=== PATIENT | female | born 1980 | race African-American/Black ===

== ENCOUNTER 2017-02-14 16:04 | Inpatient (IN) | payer OTHER ==
[~2017-02-14] VITALS: Ht 167.6 cm; Wt 95.1 kg
[2017-02-14 16:52] LABS: EOSINOPHILS % (AUTO) 0.1 % (1.0-6.0); HEMATOCRIT 40.5 % (36-46); HEMOGLOBIN 12.6 g/dL (12.0-16.0); LYMPHOCYTES # (AUTO) 1.6 K/uL (1.0-4.8); LYMPHOCYTES % (AUTO) 7.8 % (22.0-44.0); MEAN CORPUSCULAR HEMOGLOBIN 21.9 pg (26.0-34.0); MEAN CORPUSCULAR HGB CONC 31.1 G/dL (31.0-37.0); MEAN CORPUSCULAR VOLUME 71 fL (80-100); MONOCYTES % (AUTO) 4.6 % (2.0-9.0); NEUTROPHILS # (AUTO) 18.2 K/uL (1.8-7.7); PLATELET COUNT (AUTO) 322 K/uL (150-450); RED BLOOD CELL COUNT(AUTO) 5.74 MIL/uL (4.00-5.20); RED CELL DISTRIBUTION WIDTH 16.6 % (11.5-14.5); WHITE BLOOD COUNT (AUTO) 20.8 K/uL (4.5-11.0)
[2017-02-14 16:54] LABS: NEUTROPHILS % (AUTO) 87.5 % (40.0-70.0)
[2017-02-14 16:55] LABS: ANION GAP 13 mmol/L (8-16); CALCIUM, TOTAL 9.5 mg/dL (8.8-10.5); CARBON DIOXIDE 24 mmol/L (22-29); CHLORIDE 103 mmol/L (98-107); CREATININE 1.04 mg/dL (0.60-1.30); GLOMERULAR FILTR. RATE CALC > 60 mL/min (>60); POTASSIUM 3.5 mmol/L (3.5-5.1); SODIUM SERUM 140 mmol/L (136-145); UREA NITROGEN, BLOOD 7 mg/dL (7-18)
[2017-02-14 17:01] LABS: ALANINE AMINOTRANSFERASE 16 U/L (12-78); ALBUMIN 3.8 g/dL (3.4-5.0); ASPARTATE AMINOTRANSFERASE 14 U/L (15-37); BILIRUBIN,TOTAL 0.4 mg/dL (0.1-1.0); RBC MORPHOLOGY COMMENT ABNORMAL RBC MORPH; TOTAL PROTEIN, SERUM 8.4 g/dL (6.4-8.2)
[2017-02-14] MEDS ORDERED: ONDANSETRON HCL 4 MG/2 ML VIAL IVP ONE (18:15)
[2017-02-14] MEDS ORDERED: SODIUM CHLORIDE 0.9% 2,000 ML IV ONE (18:15)
[2017-02-14] MEDS ORDERED: BARIUM SULFATE 0.1% SUSPENSION 450 ML BOTTLE PO ONE (18:15)
[2017-02-14] MEDS ORDERED: HYDROmorphone 2 MG/ML SYRINGE IVP ONE ×2 (18:15→20:45)
[2017-02-14] MEDS ORDERED: SODIUM CHLORIDE 0.9% 100 ML ONE (18:19)
[2017-02-14] MEDS ORDERED: IOVERSOL 350 MG/ML 150 ML VIAL ONE (18:19)
[2017-02-14 18:28] LABS: APPEARANCE,URINE CLOUDY (CLEAR); GLUCOSE, URINE (UA) NEGATIVE (NEGATIVE); KETONES,URINE NEGATIVE (NEGATIVE); LEUKOCYTE ESTERASE ,URINE NEGATIVE (NEGATIVE); PH,URINE 5.5 (5.0-8.0); PROTEIN,URINE TRACE (NEGATIVE)
[2017-02-14 18:40] LABS: ADD UA MICROSCOPIC YES; OCCULT BLOOD,URINE MODERATE (NEGATIVE)
[2017-02-14 18:41] LABS: SQUAMOUS EPITHELIAL CELL,UR Moderate /LPF (None Seen)
[2017-02-14] MEDS ORDERED: POTASSIUM CHL 20 MEQ/D5-0.45NS 1,000 ML IV ONE (22:00)
[2017-02-15 00:13] VITALS: BP 146/76
[2017-02-15] MEDS ORDERED: 0.9% SODIUM CHLORIDE 10 ML SYRINGE IVP PRN (02:00)
[2017-02-15] MEDS ORDERED: OxyCODONE HCL/ACETAMINOPHEN 5-325 MG TABLET PO PRN (02:00)
[2017-02-15] MEDS ORDERED: ONDANSETRON HCL 4 MG/2 ML VIAL IVP PRN (02:00)
[2017-02-15] MEDS: CIPROFLOXACIN 200 MG/D5% WATER 100 ML IV SCH ×2 (03:09→16:18)
[2017-02-15] MEDS: OxyCODONE HCL/ACETAMINOPHEN 5-325 MG TABLET PO PRN ×4 (03:13→20:37)
[2017-02-15] MEDS: DOCUSATE SODIUM 100 MG CAPSULE PO SCH ×3 (03:13→20:37)
[2017-02-15 04:52] VITALS: BP 100/63
[2017-02-15 07:10] VITALS: BP 105/64
[2017-02-15] MEDS ORDERED: PANTOPRAZOLE SODIUM 40 MG/VIAL IVP SCH (09:00)
[2017-02-15] MEDS: SODIUM CHLORIDE 0.9% 1,000 ML IV SCH ×3 (10:36→23:49)
[2017-02-15] MEDS ORDERED: BISACODYL 10 MG RECTAL RECTAL SUPPOSITORY PR PRN (14:45)
[2017-02-15] MEDS ORDERED: ALBUTEROL SULFATE 2.5 MG/0.5 ML NEB SOLUTION NEB PRN (14:45)
[2017-02-15] MEDS ORDERED: ZOLPIDEM TARTRATE 5 MG TABLET PO PRN (14:45)
[2017-02-15] MEDS ORDERED: MORPHINE SULFATE 2 MG/ML SYRINGE IVP PRN (14:45)
[2017-02-15] MEDS ORDERED: ACETAMINOPHEN 325 MG TABLET PO PRN (14:45)
[2017-02-15] MEDS ORDERED: MAGNESIUM HYDROXIDE SUSPENSION 30 ML UDCUP PO PRN (14:45)
[2017-02-15] MEDS ORDERED: IPRATROPIUM BROMIDE 0.5 MG/2.5 ML NEB SOLUTION NEB PRN (14:45)
[2017-02-15 14:57] LABS: BASOPHILS % (AUTO) 0.1 % (0.0-2.0); EOSINOPHILS % (AUTO) 0.5 % (1.0-6.0); HEMATOCRIT 34.5 % (36-46); HEMOGLOBIN 10.6 g/dL (12.0-16.0); LYMPHOCYTES # (AUTO) 2.2 K/uL (1.0-4.8); LYMPHOCYTES % (AUTO) 13.9 % (22.0-44.0); MEAN CORPUSCULAR HEMOGLOBIN 22.1 pg (26.0-34.0); MEAN CORPUSCULAR HGB CONC 30.8 G/dL (31.0-37.0); MEAN CORPUSCULAR VOLUME 72 fL (80-100); MONOCYTES # (AUTO) 1.2 K/uL (0.1-1.0); MONOCYTES % (AUTO) 7.4 % (2.0-9.0); NEUTROPHILS # (AUTO) 12.3 K/uL (1.8-7.7); NEUTROPHILS % (AUTO) 78.1 % (40.0-70.0); PLATELET COUNT (AUTO) 257 K/uL (150-450); RED BLOOD CELL COUNT(AUTO) 4.81 MIL/uL (4.00-5.20); RED CELL DISTRIBUTION WIDTH 17.5 % (11.5-14.5); WHITE BLOOD COUNT (AUTO) 15.7 K/uL (4.5-11.0)
[2017-02-15 15:10] VITALS: BP 109/69
[2017-02-15 15:19] LABS: ANION GAP 8 mmol/L (8-16); CALCIUM, TOTAL 8.3 mg/dL (8.8-10.5); CARBON DIOXIDE 27 mmol/L (22-29); CHLORIDE 107 mmol/L (98-107); GLOMERULAR FILTR. RATE CALC > 60 mL/min (>60); POTASSIUM 3.9 mmol/L (3.5-5.1); SODIUM SERUM 142 mmol/L (136-145); UREA NITROGEN, BLOOD 7 mg/dL (7-18)
[2017-02-15 15:24] LABS: ALANINE AMINOTRANSFERASE 18 U/L (12-78); ALBUMIN 2.8 g/dL (3.4-5.0); ASPARTATE AMINOTRANSFERASE 15 U/L (15-37); BILIRUBIN,TOTAL 0.2 mg/dL (0.1-1.0); TOTAL PROTEIN, SERUM 6.9 g/dL (6.4-8.2)
[2017-02-15 15:41] LABS: RBC MORPHOLOGY COMMENT ABNORMAL RBC MORPH
[2017-02-15] MEDS: HEPARIN SODIUM,PORCINE 5,000 UNITS/ML VIAL SQ SCH ×2 (16:18→23:49)
[2017-02-15] MEDS: ONDANSETRON HCL 4 MG/2 ML VIAL IVP PRN (16:21)
[2017-02-15] MEDS: MetroNIDAZOLE 500 MG/NACL 100 ML IV SCH ×2 (17:25→23:49)
[2017-02-15 19:41] VITALS: BP 126/73
[2017-02-15 23:31] VITALS: BP 109/65
[2017-02-16] MEDS: CIPROFLOXACIN 200 MG/D5% WATER 100 ML IV SCH (01:54)
[2017-02-16] MEDS: OxyCODONE HCL/ACETAMINOPHEN 5-325 MG TABLET PO PRN ×2 (04:22→11:56)
[2017-02-16] MEDS: ONDANSETRON HCL 4 MG/2 ML VIAL IVP PRN (04:24)
[2017-02-16 05:28] VITALS: BP 100/56
[2017-02-16 06:22] LABS: BASOPHILS % (AUTO) 0.3 % (0.0-2.0); HEMATOCRIT 32.3 % (36-46); LYMPHOCYTES # (AUTO) 2.6 K/uL (1.0-4.8); LYMPHOCYTES % (AUTO) 25.4 % (22.0-44.0); MEAN CORPUSCULAR HEMOGLOBIN 22.3 pg (26.0-34.0); MEAN CORPUSCULAR HGB CONC 30.9 G/dL (31.0-37.0); MEAN CORPUSCULAR VOLUME 72 fL (80-100); MONOCYTES # (AUTO) 0.8 K/uL (0.1-1.0); NEUTROPHILS # (AUTO) 6.8 K/uL (1.8-7.7); NEUTROPHILS % (AUTO) 65.3 % (40.0-70.0); PLATELET COUNT (AUTO) 272 K/uL (150-450); RED BLOOD CELL COUNT(AUTO) 4.48 MIL/uL (4.00-5.20); RED CELL DISTRIBUTION WIDTH 17.4 % (11.5-14.5); WHITE BLOOD COUNT (AUTO) 10.3 K/uL (4.5-11.0)
[2017-02-16 07:10] VITALS: BP 99/49
[2017-02-16] MEDS: MetroNIDAZOLE 500 MG/NACL 100 ML IV SCH (07:48)
[2017-02-16] MEDS: DOCUSATE SODIUM 100 MG CAPSULE PO SCH (07:49)
[2017-02-16] MEDS: HEPARIN SODIUM,PORCINE 5,000 UNITS/ML VIAL SQ SCH (07:49)
[2017-02-16 07:58] LABS: ALANINE AMINOTRANSFERASE 15 U/L (12-78); ALBUMIN 2.7 g/dL (3.4-5.0); ANION GAP 6 mmol/L (8-16); ASPARTATE AMINOTRANSFERASE 9 U/L (15-37); BILIRUBIN,TOTAL 0.1 mg/dL (0.1-1.0); CALCIUM, TOTAL 7.9 mg/dL (8.8-10.5); CARBON DIOXIDE 27 mmol/L (22-29); CHLORIDE 108 mmol/L (98-107); CREATININE 0.84 mg/dL (0.60-1.30); GLOMERULAR FILTR. RATE CALC > 60 mL/min (>60); POTASSIUM 3.8 mmol/L (3.5-5.1); SODIUM SERUM 141 mmol/L (136-145); TOTAL PROTEIN, SERUM 6.3 g/dL (6.4-8.2); UREA NITROGEN, BLOOD 9 mg/dL (7-18)
[2017-02-16] MEDS ORDERED: PANTOPRAZOLE SODIUM 40 MG/VIAL IVP SCH (09:00)
[2017-02-16 10:52] LABS: RBC MORPHOLOGY COMMENT ABNORMAL RBC MORPH
[2017-02-16 11:08] VITALS: BP 110/69
[2017-02-16] MEDS ORDERED: METR500 PO (13:42)
[2017-02-16] MEDS ORDERED: CIPR-278 PO (13:42)
== END 2017-02-16 16:10 | disposition home or self-care (01) | DRG 720 ==
LOC: EMS 16:06 → 6N 23:08
PROVIDERS: ADMIT Internal Medicine; ATTEND Internal Medicine
DX: A41.9 Sepsis, unspecified organism (principal); K52.9 Noninfective gastroenteritis and colitis, unspecified; Z79.899 Other long term (current) drug therapy
CPT/HCPCS: 70450; 74177; 96361; 96365; 96366; 96375; 96376; 99285; C9113; J0744; J1170; J1644; J2405; J3480; J3490; J7030; J7050

== ENCOUNTER 2024-12-09 14:30 | Emergency (ER) | payer OTHER ==
[~2024-12-09] VITALS: Ht 162.6 cm; Wt 86.4 kg
[~2024-12-09 14:30] MED LIST: CIPR-278 PO; METR500 PO
[2024-12-09 14:32] VITALS: BP 136/75; PULSE 72; RESP 16; TEMP 98.9; O2SAT 100
[2024-12-09 14:52] LABS: APPEARANCE,URINE CLEAR (CLEAR); BILIRUBIN,URINE NEGATIVE (NEGATIVE); COLOR,URINE LIGHT YELLOW (YELLOW); GLUCOSE, URINE (UA) NEGATIVE (NEGATIVE); KETONES,URINE NEGATIVE (NEGATIVE); LEUKOCYTE ESTERASE ,URINE NEGATIVE (NEGATIVE); NITRATE,URINE NEGATIVE (NEGATIVE); OCCULT BLOOD,URINE LARGE (NEGATIVE); PH,URINE 5.5 (5.0-8.0); PROTEIN,URINE TRACE mg/dL (NEGATIVE); UROBILINOGEN,URINE <=1.0 mg/dL (<=1.0)
[2024-12-09 15:19] LABS: BACTERIA,URINE None Seen /HPF (None Seen); SQUAMOUS EPITHELIAL CELL,UR Few /LPF (None Seen); WBC,URINE None Seen /HPF (0-5)
[2024-12-09 15:19] LABS: BASOPHILS % (AUTO) 0.3 % (0.0-2.0); EOSINOPHILS % (AUTO) 0.5 % (1.0-6.0); HEMATOCRIT 36.8 % (36-46); HEMOGLOBIN 11.4 g/dL (12.0-16.0); LYMPHOCYTES # (AUTO) 2.7 K/uL (1.0-4.8); LYMPHOCYTES % (AUTO) 23.6 % (22.0-44.0); MEAN CORPUSCULAR HGB CONC 30.9 G/dL (31.0-37.0); MEAN CORPUSCULAR VOLUME 71 fL (80-100); MONOCYTES # (AUTO) 0.7 K/uL (0.1-1.0); NEUTROPHILS # (AUTO) 7.9 K/uL (1.8-7.7); NEUTROPHILS % (AUTO) 69.6 % (40.0-70.0); PLATELET COUNT (AUTO) 389 K/uL (150-450); RED BLOOD CELL COUNT(AUTO) 5.17 MIL/uL (4.00-5.20); RED CELL DISTRIBUTION WIDTH 16.3 % (11.5-14.5); WHITE BLOOD COUNT (AUTO) 11.3 K/uL (4.5-11.0)
[2024-12-09 15:27] LABS: ANION GAP 10 mmol/L (8-16); CARBON DIOXIDE 28 mmol/L (22-29); CHLORIDE 103 mmol/L (98-107); CREATININE 0.94 mg/dL (0.60-1.30); GLOMERULAR FILTR. RATE CALC > 60 mL/min (>60); GLUCOSE,RANDOM 79 mg/dL (70-110); POTASSIUM 4.1 mmol/L (3.5-5.1); SODIUM SERUM 141 mmol/L (136-145); UREA NITROGEN, BLOOD 11 mg/dL (7-18)
[2024-12-09 15:31] LABS: ALANINE AMINOTRANSFERASE 20 U/L (12-78); ALBUMIN 3.5 g/dL (3.4-5.0); ALKALINE PHOSPHATASE 60 U/L (46-116); ASPARTATE AMINOTRANSFERASE 16 U/L (15-37); BILIRUBIN,TOTAL 0.2 mg/dL (0.1-1.0); LIPASE 39 U/L (16-77); TOTAL PROTEIN, SERUM 7.6 g/dL (6.4-8.2)
[2024-12-09 16:35] LABS: RBC MORPHOLOGY COMMENT ABNORMAL RBC MORPH
[2024-12-09] MEDS ORDERED: IOHEXOL 350 MG/ML 100 ML VIAL ONE (16:46)
[2024-12-09] MEDS ORDERED: 0.9% SODIUM CHLORIDE 10 ML SYRINGE IVP ONE (16:46)
[2024-12-09] MEDS ORDERED: SODIUM CHLORIDE 0.9% 100 ML ONE (16:46)
[2024-12-09] MEDS: KETOROLAC TROMETHAMINE 30 MG/ML VIAL IVP ONE (17:06)
[2024-12-09] MEDS: SODIUM CHLORIDE 0.9% 1,000 ML IV ONE (17:06)
[2024-12-09] MEDS: MORPHINE SULFATE 2 MG/ML SYRINGE IVP ONE ×2 (18:44→20:35)
[2024-12-09] MEDS ORDERED: ACET-3385 PO (21:28)
[2024-12-09] MEDS ORDERED: IBUP-1492 PO (21:28)
== END 2024-12-09 21:38 | disposition home or self-care (01) ==
LOC: EMS 14:30
DX: R31.9 Hematuria, unspecified (principal); R10.84 Generalized abdominal pain; Z98.890 Other specified postprocedural states
CPT/HCPCS: 99285; 74177; 96374; 96361; 96375; 80048; 80076; 81001; 83690; 84703; 85025; 36415; 96376; J1885; Q9967; J2270; J7030; J7050